=== PATIENT | female | born 1990 | race Caucasian/White ===

== ENCOUNTER 2022-06-13 08:57 | Outpatient (CLI) | payer OTHER | END 2022-06-13 08:58 | disposition home or self-care (01) | LOC: ULT 08:57 | PROVIDERS: ATTEND Physician Assistant Medical | DX: R10.9 Unspecified abdominal pain (principal); K31.84 Gastroparesis; R11.2 Nausea with vomiting, unspecified; G89.29 Other chronic pain | CPT/HCPCS: 76700 ==

== ENCOUNTER 2023-07-29 08:19 | Outpatient (CLI) | payer OTHER | END 2023-07-29 08:20 | disposition home or self-care (01) | LOC: CT 08:19 | PROVIDERS: ATTEND Internal Medicine Gastroenterology | DX: K31.84 Gastroparesis (principal); R10.9 Unspecified abdominal pain; R11.2 Nausea with vomiting, unspecified; K59.09 Other constipation; K31.89 Other diseases of stomach and duodenum | CPT/HCPCS: 74178 ==